=== PATIENT | female | born 1985 | race Caucasian/White ===

== ENCOUNTER → 2020-08-23 09:41 | Outpatient (CLI) | payer OTHER, SELFPAY ==
--- NOTE | 2020-08-23 | DI.RAD.S_ITS ---
PROCEDURE: XR AC JOINT BI INDICATIONS: RIGHT AC JOINT PAIN TECHNIQUE: 2 views each of both acromioclavicular joints were acquired. COMPARISON: None. FINDINGS: Bones: No fractures or dislocations. There is mild narrowing of the acromioclavicular joints bilaterally, unchanged between weighted and non weighted views. No suspicious bony lesions. Superior ribs appear normal. Soft tissues: No suspicious soft tissue calcifications. IMPRESSION: Mild narrowing of the acromioclavicular joint as above. Dictated by: Alyse Medellin M.D. on 08/23/2020 at 11:30 Approved by: Alyse Medellin M.D. on 08/23/2020 at 11:32
--- NOTE | 2020-08-23 | DI.RAD.S_ITS ---
PROCEDURE: XR SHOULDER RT MIN 2V INDICATIONS: RIGHT AC JOINT PAIN TECHNIQUE: 3 views of the shoulder were acquired. COMPARISON: [facility], CR, XR AC JOINT BI, 08/23/2020, 10:00. FINDINGS: Bones: No fractures or dislocations. No suspicious bony lesions. Visualized ribs appear intact. Mild narrowing of the right acromioclavicular joint space. Soft tissues: No suspicious soft tissue calcifications. IMPRESSION: Mild right acromioclavicular joint space narrowing. Otherwise, unremarkable exam. Dictated by: Alyse Medellin M.D. on 08/23/2020 at 11:33 Approved by: Alyse Medellin M.D. on 08/23/2020 at 11:33
== END ==
PROVIDERS: Family Provider Specialist; PCP Internal Medicine; Referring Provider Internal Medicine; Visit Provider Internal Medicine
DX: M25.511 Pain in right shoulder (principal)
CPT/HCPCS: 73030; 73050

== ENCOUNTER → 2020-12-06 08:14 | Outpatient (CLI) | payer OTHER, SELFPAY ==
--- NOTE | 2020-12-06 08:16 | DI.US.S_ITS ---
PROCEDURE: US PELVIC COMPLETE INDICATIONS: DUB TECHNIQUE: Real-time scanning was performed of the pelvic organs, with image documentation. Additional endovaginal scanning was necessary due to incomplete visualization of the adnexal and endometrial structures by transabdominal scanning. COMPARISON: None. FINDINGS: Uterus: Uterus is anteverted normal in size at 8.7 x 5.5 x 4.2 cm. No fibroids seen. The endometrium measures 11 mm in combined thickness. Ovaries: Within normal limits. Small ovarian follicles. No mass or large cyst. Right ovary measures 2.7 x 2.6 x 2 cm, estimated volume of 7 cc. Left ovary measures 3 x 2.6 x 2 cm, estimated volume of 9 cc. Other: No pathologic free abdominal or pelvic fluid. IMPRESSION: 1. Endometrium measures 11 mm and is within normal limits. 2. No fibroids seen. 3. Normal sonographic appearance of the ovaries. Dictated by: Valentino August M.D. on 12/07/2020 at 17:11 Approved by: Valentino August M.D. on 12/07/2020 at 17:14
== END ==
PROVIDERS: Family Provider Specialist; PCP Internal Medicine; Referring Provider Student in an Organized Health Care Education/Training Program; Visit Provider Student in an Organized Health Care Education/Training Program
DX: N92.0 Excessive and frequent menstruation with regular cycle (principal)
CPT/HCPCS: 76830; 76856

== ENCOUNTER → 2023-10-30 15:40 | Outpatient (CLI) | payer OTHER, SELFPAY ==
--- NOTE | 2023-10-30 | DI.US.S_ITS ---
PROCEDURE: US THYROID INDICATIONS: NONTOXIC GOITER TECHNIQUE: Real-time scanning was performed of the thyroid gland, with image documentation. COMPARISON: None. FINDINGS: Right: Thyroid lobe measures 5.2 x 1.2 x 1.0 there cm, and is homogeneous in echotexture. Left: Thyroid lobe measures 4.0 x 1.3 x 1.1 cm, and is homogenous in echotexture. Isthmus: 0.24 cm thick. Nodule number: 1 Location: Right isthmus Size: 0.6 x 0.8 x 0.3 cm. Composition: Solid Echogenicity: Hypoechoic Shape: wider than tall. Margins: Smooth Echogenic foci: None Total points: 4 ACR TI-RADS category: 4 IMPRESSION: 1. A small subcentimeter nodule in the right side of the isthmus. Please see enclosed follow-up guideline. ACR TI-RADS definitions and recommendations: TI-RADS 1 (benign): 0 points. FNA not needed. TI-RADS 2 (not suspicious): 2 points. FNA not needed. TI-RADS 3 (mildly suspicious): 3 points. * FNA if 2.5 cm or larger, follow up if 1.5 cm or larger (at 1, 3, and 5 years). TI-RADS 4 (moderately suspicious): 4-6 points. * FNA if 1.5 cm or larger, follow up if 1 cm or larger (at 1, 2, 3, and 5 years). TI-RADS 5 (highly suspicious): 7 points or more. * FNA if 1 cm or larger, follow up if 0.5 cm or larger (every year for 5 years). Dictated by: Pamela Lu M.D. on 10/31/2023 at 14:01 Approved by: Pamela Lu M.D. on 10/31/2023 at 14:35
== END ==
LOC: US 15:40
PROVIDERS: Family Provider Specialist; PCP Internal Medicine; Referring Provider Internal Medicine; Visit Provider Internal Medicine
DX: E03.9 Hypothyroidism, unspecified (principal); E04.1 Nontoxic single thyroid nodule
CPT/HCPCS: 76536

== ENCOUNTER 2024-11-07 03:13 | Emergency (ER) | payer OTHER, SELFPAY ==
--- NOTE | 2024-11-07 03:22 | DI.RAD.S_ITS ---
PROCEDURE: XR CHEST 1V INDICATIONS: epigastric pain TECHNIQUE: One view of the chest was acquired. COMPARISON: None. FINDINGS: Surgical changes and devices: None. Lungs and pleura: Lungs are clear. No pleural effusions or pneumothorax. Mediastinum: Mediastinal contours appear normal. Heart size is normal. Bones and chest wall: No suspicious bony lesions. Overlying soft tissues appear unremarkable. IMPRESSION: No acute cardiopulmonary pathology. No discrepancies from preliminary reading. Dictated by: Maciej Choi M.D. on 11/07/2024 at 8:06 Approved by: Maciej Choi M.D. on 11/07/2024 at 8:06
--- NOTE | 2024-11-07 03:22 | EKG_ITS ---
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
--- NOTE | 2024-11-07 03:24 | ED_ITS ---
HPI - Abdominal Pain General Chief Complaint: Nausea/Vomiting/Diarrhea Stated Complaint: Vomiting and diarrhea x 3 days Time Seen by Provider: 11/07/24 03:22 History of Present Illness HPI narrative: 39-year-old female past medical history of hypothyroidism comes into the ED from home for evaluation of abdominal pain, nausea vomiting diarrhea ongoing persistent for the past 3 days. States that she is tried [id number] medications to help with the symptoms but this does not help. Patient states that symptoms have gotten worse therefore decided come into the ED for further evaluation treatment. She denies any other symptoms such as headache visual disturbances chest pain shortness of breath fever chills or any other GI/ symptoms time. No recent travel no known sick contacts no recent antibiotic use. Related Data Previous Rx's Medication Instructions Recorded betamethasone dipropionate 0.05 % 1 margaret topical BID ##60 10/07/17 topical cream levothyroxine 175 mcg tablet 175 mcg PO QAM hypothyroid #30 tabs 10/13/18 ondansetron 4 mg disintegrating 4 mg PO Q8H PRN nausea and 11/07/24 tablet vomiting 5 days #15 tabs Allergies Allergy/AdvReac Type Severity Reaction Status Date / Time Penicillins [PENICILLINS] Allergy Unknown Unverified 01/07/18 12:37 Review of Systems Review of Systems Narrative: General: Denies fever, chills, weight loss HEENT: Denies headache, eye drainage, eye irritation, head trauma, sore throat, voice change Cardiovascular: Denies any chest pain, palpitations, shortness of breath, tachycardia Respiratory: Denies any shortness of breath, cough, wheeze, stridor GI/: Positive abdominal pain, nausea, vomiting, diarrhea, denies bright red blood per rectum, melanotic stools, urinary frequency, urinary retention, dysuria, hematuria MSK: Denies any joint pain, muscle pains, swelling Skin: Denies any rashes, lesions, discoloration Neuro: Denies any headache, lightheadedness, dizziness, fainting, weakness Psych: Denies SI/HI Patient History Social History Smoking Status: Never smoker Exam Narrative Exam Narrative: General: Cooperative, comfortable, well-developed, not in acute distress HEENT: Normocephalic, atraumatic, PERRLA, normal sclera, eyelids normal, Neck: Active full range of motion, atraumatic Chest: Normal to inspection, negative crepitus, no overlying erythema ecchymosis Respiratory: Normal respiratory effort, not in acute respiratory distress, clear to auscultation bilaterally negative cough, wheeze, tachypnea, rhonchi, rales Cardiology: Regular rate rhythm negative gallop, murmur, rubs GI/: Normal to inspection, soft, nonrigid, mild tenderness to palpation diffusely, worse in the epigastric region, exam deferred MSK: Full range of active range of motion of all 4 extremities, atraumatic Skin: No rashes lesions noted Neuro: Alert awake oriented x3, moves all 4 extremities spontaneously, cranial nerves intact, able to answer all questions appropriately follows commands appropriately Psych: Cooperative, negative suicidal or homicidal ideations Initial Vital Signs Initial Vital Signs: Vital Signs Temperature 97.2 F L 11/07/24 03:30 Pulse Rate 98 H 11/07/24 03:30 Respiratory Rate 22 11/07/24 03:30 Blood Pressure 135/90 11/07/24 03:30 Pulse Oximetry 98 11/07/24 03:30 Oxygen Delivery Method Room Air 11/07/24 03:30 Course Orders Ordered: ED Orders 11/07/24 03:22 CXR [XR chest 1V] Stat EKG-12 Lead Stat 11/07/24 03:27 Ictotest Urine Stat Urine Microscopic Stat 11/07/24 03:28 CBC Auto Diff [Complete Blood Count AUTO DIFF] Stat CMP [Comprehensive Metabolic Panel] Stat Lipase Stat MAG [Magnesium] Stat Troponin & CK Cardiac Panel Stat 11/07/24 03:48 CT abdomen pelvis w con Stat 11/07/24 04:43 Covid-19 + FLU A/B + RSV - PCR Stat Discontinued Medications Famotidine (Famotidine 20 Mg/2 Ml Vial) 20 mg IV NOW ONE Stop: 11/07/24 03:24 Last Admin: 11/07/24 03:47 Dose: 20 mg Documented By: KATHLEEN Sodium Chloride (Normal Saline 0.9%) 1,000 mls @ 1,000 mls/hr IV BOLUS ONE Stop: 11/07/24 04:21 Last Infusion: 11/07/24 05:06 Dose: Infused Documented By: Admin: 11/07/24 03:47 Dose: 1,000 mls/hr Documented By: KATHLEEN Morphine Sulfate (Morphine 4 Mg/Ml Inj) 4 mg IV NOW ONE Stop: 11/07/24 03:26 Last Admin: 11/07/24 03:47 Dose: 4 mg Documented By: KATHLEEN Ondansetron HCl (Ondansetron 4 Mg/2 Ml Inj) 4 mg IV NOW ONE Stop: 11/07/24 03:23 Last Admin: 11/07/24 03:47 Dose: 4 mg Documented By: KATHLEEN Vital Signs Vital signs: Vital Signs - 8 hr 11/07/24 03:30 11/07/24 04:38 Temperature 97.2 F L Pulse Rate 98 H 84 Respiratory Rate 22 16 Blood Pressure 135/90 109/58 L Pulse Oximetry 98 100 Oxygen Delivery Method Room Air Room Air MDM - Abdominal Pain Differential Diagnosis Differential diagnosis: Likely other (ACS, pneumonia, electrolyte abnormality, colitis, diverticulitis, urinary tract infection) Lab Data 11/07/24 03:28 11/07/24 03:28 Labs: Lab Results 11/07/24 11/07/24 11/07/24 Range/Units 03:27 03:28 04:43 WBC 9.5 (4.5-11.0) X10^3/uL RBC 4.88 (4.0-5.2) X10^6/uL Hgb 14.2 (12.0-16.0) g/dL Hct 41.5 (36-46) % MCV 85.2 (80-100) fL MCH 29.2 (26-34) PG MCHC 34.3 (30-36) % RDW 14.4 (11.6-14.8) % Plt Count 353 (150-400) X10^3/uL Neut % (Auto) 72.2 (50-75) % Lymph % (Auto) 15.1 L (25-40) % [place] % (Auto) 8.6 (3-14) % Eos % (Auto) 3.9 (2-4) % Baso % (Auto) 0.2 (0-2) % Neut # (Auto) 6800 (6072-5716) /uL Lymph # (Auto) 1400 (6707-1357) /uL [place] # (Auto) 800 (0-900) /uL Eos # (Auto) 400 (0-450) /uL Baso # (Auto) 0 (0-100) /uL Sodium 136 L (137-145) mmol/L Potassium 3.6 (3.4-5.1) mmol/L Chloride 103 (98-107) mmol/L Carbon Dioxide 23 (22-32) mmol/L BUN 13 (7-17) mg/dL Creatinine 0.97 (0.52-1.04) mg/dL Estimated GFR > 60 (>60) mL/min BUN/Creatinine Ratio 13.4 (6-22) Glucose 123 H (70-100) mg/dL Calcium 9.5 (8.4-10.2) mg/dL Magnesium 1.9 (1.6-2.3) mg/dL Total Bilirubin 0.6 (0.2-1.3) mg/dL AST 24 (14-36) IU/L ALT 24 (<35) IU/L Alkaline Phosphatase 70 (38-126) U/L Total Creatine Kinase 63 (30-135) U/L Troponin I < 0.012 (0.01-0.034) ng/mL Total Protein 7.8 (6.3-8.2) g/dL Albumin 4.8 (3.5-5.0) g/dL Globulin 3.0 (1.7-4.1) g/dL Albumin/Globulin Ratio 1.6 (1.0-2.8) Lipase 48 (23-300) U/L Ur Bilirubin Confirm Negative (Negative) Urine RBC 0-1/hpf (0-5/HPF) Urine WBC 0-1/hpf (0-5/HPF) Ur Squamous Epith Cells 5-10 /hpf H (0-5/HPF) Calcium Oxalate Crystal Few H Amorphous Sediment 4+ Urine Bacteria Few (2-10) H (None) Ur Culture Indicated? Cult not indicated Vol Urine Centrifuged 10ml (spun) SARS-CoV-2 (PCR) Negative (Negative) Influenza A (RT-PCR) Flu a negative (NEGATIVE) Influenza B (RT-PCR) Flu b negative (NEGATIVE) RSV (PCR) Negative (Negative) Point of care testing: Point of Care Testing Test Results Negative Urine Dip Bedside Urine Glucose Negative Bedside Urine Bilirubin ++ 2 Bedside Urine Ketone +/- 5 Urine Specific [place] 1.030 Bedside Urine Occult Blood - Negative Bedside Urine pH 5.5 Bedside Urine Protein + 30 Bedside Urine Urobilinogen - Negative Bedside Urine Nitrite - Negative Bedside Urine Leukocytes +/- 15 Esterase Imaging Data Chest x-ray: Radiologist's Impression: Preliminary read showing no acute cardiopulmonary abnormality CT scan - abdomen/pelvis: Radiologist's Impression: Preliminary read showing enlarged spleen, fluid contents nondistended within the small and large bowel incidental or diarrheal in nature otherwise no other acute findings MDM Narrative Medical decision making narrative: 39-year-old female with past medical history of hypothyroidism presents for nausea vomiting abdominal pain ongoing persistent for the past 3 days. Patient had lab work imaging EKG performed here in the emergency department. Patient's troponin negative, CT scan only showing an enlarged spleen, patient lab work without leukocytosis, Chem panel unremarkable. Patient had significant improvement of her symptoms after administration of medication. Chest x-ray without any signs of pneumonia. Urinalysis not consistent with an acute urinary tract infection. Patient's symptoms more likely secondary to gastroenteritis patient is well-appearing nontoxic she was given strict return precautions she verbalized understanding of this and agrees to being discharged home with primary care follow up. Discharge Plan Departure Patient Disposition: Home Clinical Impression: Gastroenteritis Instructions: DI for Viral Gastroenteritis -- Adult Activity Restrictions/Additional Instructions: Please follow up with primary care Please read the discharge instructions sheet carefully and bring all papers to all doctor follow-up visits, as it may contain information that your doctor may want to see. Disease processes change and evolve, if your symptoms worsen or if you develop any new symptoms that are concerning to you please return for evaluation. Your evaluation today does not show any evidence of any life- threatening/serious illnesses requiring admission to the hospital or surgery. Please follow-up with your doctor for re-evaluation in approximately 1 day. Seek immediate medical attention for any worrisome symptoms. *If you do not have a primary care provider please contact the [facility] Resource line at [phone]. They will ask some questions about your medical history and help get you set up with a doctor in the community. Prescriptions: New ondansetron 4 mg tablet,disintegrating 4 mg PO Q8H PRN (Reason: nausea and vomiting) 5 Days Qty: 15 0RF No Action betamethasone dipropionate 0.05 % cream 1 margaret Topical BID Qty: 60 0RF levothyroxine 175 mcg tablet 175 mcg PO QAM Qty: 30 1RF Referrals: Ying Anderson ARNP [Primary Care Provider] - Stand Alone Forms: Patient Portal/API/Survey
[2024-11-07 03:30] VITALS: BP 135/90; PULSE 98; RESP 22; TEMP 36.2; O2SAT 98; BMI 36.9
--- NOTE | 2024-11-07 03:35 | PC.NURSE ---
Pt to imaging via ED stretcher with imaging technician
[2024-11-07 03:36] LABS: Add Manual Diff / Slide Review NO; Basophils Absolute Auto 0 /uL (0-100); Basophils Percent Auto 0.2 % (0-2); Eosinophils Absolute Auto 400 /uL (0-450); Eosinophils Percent Auto 3.9 % (2-4); Hematocrit 41.5 % (36-46); Hemoglobin 14.2 g/dL (12.0-16.0); Lymphocytes Absolute Auto 1400 /uL (1100-4500); Lymphocytes Percent Auto 15.1 % (25-40); Mean Corpuscular HGB Conc 34.3 % (30-36); Mean Corpuscular Hemoglobin 29.2 PG (26-34); Mean Corpuscular Volume 85.2 fL (80-100); Monocytes Absolute Auto 800 /uL (0-900); Monocytes Percent Auto 8.6 % (3-14); Neutrophils Absolute Auto 6800 /uL (1500-7000); Neutrophils Percent Auto 72.2 % (50-75); Platelet Count 353 X10^3/uL (150-400); Red Blood Cell Count 4.88 X10^6/uL (4.0-5.2); Red Cell Distribution Width 14.4 % (11.6-14.8); White Blood Cell Count 9.5 X10^3/uL (4.5-11.0)
[2024-11-07] MEDS: SODIUM CHLORIDE 0.9% 1,000 ML 1000 ML IV (03:47)
[2024-11-07] MEDS: MORPHINE 4 MG/ML INJ IV (03:47)
[2024-11-07] MEDS: ONDANSETRON 4 MG/2 ML INJ IV (03:47)
[2024-11-07] MEDS: FAMOTIDINE 20 MG/2 ML VIAL IV (03:47)
[2024-11-07 03:48] LABS: Alanine Aminotransferase 24 IU/L (<35); Albumin 4.8 g/dL (3.5-5.0); Albumin Globulin Ratio 1.6 (1.0-2.8); Alkaline Phosphatase 70 U/L (38-126); Aspartate Aminotransferase 24 IU/L (14-36); BUN Creatinine Ratio 13.4 (6-22); Bilirubin Total 0.6 mg/dL (0.2-1.3); Blood Urea Nitrogen 13 mg/dL (7-17); Calcium 9.5 mg/dL (8.4-10.2); Carbon Dioxide 23 mmol/L (22-32); Chloride 103 mmol/L (98-107); Creatine Kinase 63 U/L (30-135); Estimated Glomerular Filt Rate > 60 mL/min (>60); Glucose 123 mg/dL (70-100); HEMOLYSIS < 15 (0-50); Lipase 48 U/L (23-300); Magnesium 1.9 mg/dL (1.6-2.3); Potassium 3.6 mmol/L (3.4-5.1); Sodium 136 mmol/L (137-145); Total Protein 7.8 g/dL (6.3-8.2)
--- NOTE | 2024-11-07 03:48 | DI.CT.S_ITS ---
PROCEDURE: CT ABDOMEN PELVIS W CON INDICATIONS: diffuse abd pain, worse to epigastric TECHNIQUE: After the administration of intravenous contrast, axial sections acquired from the lung bases to the pubic symphysis. Coronal and sagittal reformats were performed. For radiation dose reduction, the following was used: automated exposure control, adjustment of mA and/or kV according to patient size. COMPARISON: None. FINDINGS: Image quality: Diagnostic. Lower Chest: No significant findings. ABDOMEN: Liver: No solid mass. Gallbladder: No radiopaque gallstones or wall thickening. Biliary ducts: No biliary dilation. Pancreas: No ductal dilation. Spleen: Mild splenomegaly, no discrete splenic lesion. Adrenal Glands: No adrenal nodules. Kidneys and Ureters: No hydronephrosis. No solid mass. No complex renal cystic lesion which requires follow up. Stomach and Bowel: There is no evidence of bowel obstruction. Mild fluid filling of nondistended small and large bowel loops which may be due to diarrhea. No significant bowel wall thickening. No mesenteric fat stranding. No abscess collection. Appendix is not definitely seen. No focal inflammatory changes are noted in right lower quadrant abdomen. Peritoneum: No abnormal intraperitoneal fluid. No free air. Ventral Wall: No significant ventral hernia. Abdominal Nodes: No retroperitoneal or mesenteric adenopathy by size criteria. Vessels: Aorta and inferior vena cava are normal in size. PELVIS: Pelvic Organs: Unremarkable. Bladder: No bladder wall thickening, accounting for underdistention. Pelvic Nodes: No enlarged lymph nodes. Miscellaneous: No inguinal hernias are seen. Bones: No aggressive osseous abnormality. Spondylitic changes at L5-S1 level are seen. IMPRESSION: 1. Partially fluid filling of nondistended small bowel and colon loops which may be due to diarrhea and low-grade enterocolitis, suggest clinical correlation. No abnormal bowel wall thickening. No free fluid or free air. 2. Mild splenomegaly, no discrete splenic lesion. No significant discrepancies from preliminary reading. Dictated by: Maciej Choi M.D. on 11/07/2024 at 8:06 Approved by: Maciej Choi M.D. on 11/07/2024 at 8:08
[2024-11-07 04:38] VITALS: BP 109/58; PULSE 84; RESP 16; O2SAT 100
[2024-11-07 04:44] LABS: Amorphous Sediment Urine 4+; Calcium Oxalate Crystals Urine Few; Urine Volume 10mL (spun); WBC Urine 0-1/HPF (0-5/HPF)
[2024-11-07 04:45] LABS: Bacteria Urine Few (2-10); Culture Indicated Urine Cult Not Indicated; RBC Urine 0-1/HPF (0-5/HPF); Squamous Epithelial Cell Urine 5-10 /HPF (0-5/HPF)
[2024-11-07 04:46] LABS: Ictotest Urine Negative (Negative)
[2024-11-07 05:00] LABS: Troponin I < 0.012 ng/mL (0.01-0.034)
--- NOTE | 2024-11-07 05:29 | PC.NURSE ---
Pt ambulatory to restroom without difficulty or assistance
[2024-11-07 05:34] LABS: Influenza A - CEPHEID Flu A NEGATIVE (NEGATIVE); Influenza B - CEPHEID Flu B NEGATIVE (NEGATIVE); Respiratory Syncytial Virus Negative (Negative)
[2024-11-07 05:36] LABS: COVID-19 CEPHEID 4-PLEX PCR Negative (Negative)
== END 2024-11-07 05:56 | disposition home or self-care (01) ==
PROVIDERS: Emergency Provider Student in an Organized Health Care Education/Training Program; Family Provider Specialist; PCP Internal Medicine
DX: K52.9 Noninfective gastroenteritis and colitis, unspecified (principal); Z88.0 Allergy status to penicillin; Z86.39 Personal history of other endocrine, nutritional and metabolic disease
CPT/HCPCS: 0241U; 36415; 71045; 74177; 80053; 81003; 81015; 81025; 82550; 83690; 83735; 84484; 85025; 93005; 96361; 96374; 96375; 99284; 99285; J2270; J2405; Q9967

== ENCOUNTER 2024-11-09 10:03 | Emergency (ER) | payer OTHER, SELFPAY ==
[2024-11-09] VITALS (9 sets, daily range): BP systolic 100–145; BP diastolic 56–87; PULSE 78–121; RESP 16; TEMP 36.5–36.9; O2SAT 98–100
[2024-11-09] MEDS: SODIUM CHLORIDE 0.9% 1,000 ML 1000 ML IV ×2 (11:20→12:00)
[2024-11-09 11:29] LABS: Add Manual Diff / Slide Review NO; Basophils Absolute Auto 0 /uL (0-100); Basophils Percent Auto 0.2 % (0-2); Eosinophils Absolute Auto 200 /uL (0-450); Eosinophils Percent Auto 3.2 % (2-4); Hematocrit 43.8 % (36-46); Hemoglobin 14.7 g/dL (12.0-16.0); Lymphocytes Absolute Auto 1100 /uL (1100-4500); Lymphocytes Percent Auto 14.2 % (25-40); Mean Corpuscular HGB Conc 33.5 % (30-36); Mean Corpuscular Hemoglobin 29.1 PG (26-34); Mean Corpuscular Volume 86.8 fL (80-100); Monocytes Absolute Auto 600 /uL (0-900); Monocytes Percent Auto 7.2 % (3-14); Neutrophils Absolute Auto 5800 /uL (1500-7000); Neutrophils Percent Auto 75.2 % (50-75); Platelet Count 302 X10^3/uL (150-400); Red Blood Cell Count 5.05 X10^6/uL (4.0-5.2); Red Cell Distribution Width 14.1 % (11.6-14.8); White Blood Cell Count 7.8 X10^3/uL (4.5-11.0)
[2024-11-09 11:48] LABS: Alanine Aminotransferase 17 IU/L (<35); Albumin 4.6 g/dL (3.5-5.0); Albumin Globulin Ratio 1.8 (1.0-2.8); Alkaline Phosphatase 49 U/L (38-126); Aspartate Aminotransferase 28 IU/L (14-36); BUN Creatinine Ratio 13.8 (6-22); Bilirubin Total 0.7 mg/dL (0.2-1.3); Blood Urea Nitrogen 13 mg/dL (7-17); Calcium 9.1 mg/dL (8.4-10.2); Carbon Dioxide 22 mmol/L (22-32); Chloride 106 mmol/L (98-107); Estimated Glomerular Filt Rate > 60 mL/min (>60); Globulin 2.5 g/dL (1.7-4.1); Glucose 94 mg/dL (70-100); Lipase 39 U/L (23-300); Sodium 137 mmol/L (137-145); Total Protein 7.1 g/dL (6.3-8.2)
[2024-11-09 11:54] LABS: HEMOLYSIS 95 (0-50); Potassium 4.5 mmol/L (3.4-5.1)
[2024-11-09 13:06] LABS: Urine Volume 10mL (spun)
[2024-11-09 13:09] LABS: Bacteria Urine Moderate (10-30); Culture Indicated Urine Cult Not Indicated; Mucus Urine 2+ (Negative); RBC Urine None Seen (0-5/HPF); Squamous Epithelial Cell Urine 1-5 /HPF (0-5/HPF); WBC Urine 1-5/HPF (0-5/HPF)
--- NOTE | 2024-11-09 13:51 | ED.NAVMDI ---
HPI - Nausea/Vomiting/Diarrhea General Chief complaint: Nausea/Vomiting/Diarrhea Stated complaint: Not feeling feeling better from last ER visit Time Seen by Provider: 11/09/24 13:45 Source: patient and family Mode of arrival: Ambulatory History of Present Illness HPI Narrative: 39-year-old female with recent ED visit here for nausea vomiting diarrhea, discharged on oral ondansetron which she had been taking, however she is having increased stooling and still having nausea and vomiting. No black or red stools. No black or red emesis. She feels dizzy and weak. She has not taking any antibiotics. Denies painful or frequent urination. Denies cough chest pain or shortness of breath. No injury or trauma new activities. No change in medications. She also took single dose of loperamide for the 1st time earlier today. No stooling since that dose. Feels that she is dehydrated. Related Data Previous Rx's Medication Instructions Recorded betamethasone dipropionate 0.05 % 1 margaret topical BID ##60 10/07/17 topical cream levothyroxine 175 mcg tablet 175 mcg PO QAM hypothyroid #30 tabs 10/13/18 ondansetron 4 mg disintegrating 4 mg PO Q8H PRN nausea and 11/07/24 tablet vomiting 5 days #15 tabs Allergies Allergy/AdvReac Type Severity Reaction Status Date / Time Penicillins [PENICILLINS] Allergy Unknown Verified 11/09/24 12:00 Patient History Social History Smoking Status: Never smoker Smoking Status: Never smoker Exam Narrative Exam Narrative: GENERAL: Well-developed patient, in mild distress. HEAD: Atraumatic. Normocephalic. EYES: Pupils equal round and reactive. Extraocular motions intact. No scleral icterus. No injection or drainage. ENT: Nose without bleeding, purulent drainage. Throat without erythema, tonsillar hypertrophy or exudate. Airway patent. NECK: Trachea midline. Non tender CARDIOVASCULAR: Regular rate and rhythm without murmurs, gallops, or rubs. RESPIRATORY: Clear to auscultation. Breath sounds equal bilaterally. No wheezes, rales, or rhonchi. GASTROINTESTINAL: Abdomen soft, non-tender, nondistended. EXTREMITIES: No edema or joint tenderness. BACK: Nontender without deformity or crepitance. No flank tenderness. NEURO: AOx3. Motor functions grossly nonfocal SKIN: No rash or erythema of visible areas Initial Vital Signs Initial Vital Signs: Vital Signs Temperature 97.7 F 11/09/24 10:56 Pulse Rate 121 H 11/09/24 10:56 Respiratory Rate 16 11/09/24 10:56 Blood Pressure 100/78 11/09/24 10:56 Pulse Oximetry 99 11/09/24 10:56 Oxygen Delivery Method Room Air 11/09/24 10:56 Course Orders Ordered: Discontinued Medications Sodium Chloride (Normal Saline 0.9%) 1,000 mls @ 1,000 mls/hr IV BOLUS ONE Stop: 11/09/24 11:57 Last Infusion: 11/09/24 12:00 Dose: Infused Documented By: Admin: 11/09/24 11:20 Dose: 1,000 mls/hr Documented By: RADHA Sodium Chloride (Normal Saline 0.9%) 1,000 mls @ 1,000 mls/hr IV BOLUS ONE Stop: 11/09/24 12:57 Last Infusion: 11/09/24 13:06 Dose: Infused Documented By: Admin: 11/09/24 12:00 Dose: 1,000 mls/hr Documented By: Ondansetron HCl (Ondansetron 4 Mg/2 Ml Inj) 4 mg IV NOW PRN PRN Reason: Nausea And Vomiting Ondansetron HCl (Ondansetron 4 Mg Odt) 4 mg PO NOW PRN PRN Reason: Nausea And Vomiting Vital Signs Vital signs: Vital Signs - 8 hr 11/09/24 14:44 Temperature 98.4 F Pulse Rate 85 Respiratory Rate 16 Blood Pressure 112/67 Pulse Oximetry 98 Oxygen Delivery Method Room Air MDM - Nausea/Vomiting/Diarrhea Lab Data 11/09/24 11:13 11/09/24 11:13 Labs: Lab Results 11/09/24 11/09/24 Range/Units 11:13 12:30 WBC 7.8 (4.5-11.0) X10^3/uL RBC 5.05 (4.0-5.2) X10^6/uL Hgb 14.7 (12.0-16.0) g/dL Hct 43.8 (36-46) % MCV 86.8 (80-100) fL MCH 29.1 (26-34) PG MCHC 33.5 (30-36) % RDW 14.1 (11.6-14.8) % Plt Count 302 (150-400) X10^3/uL Neut % (Auto) 75.2 H (50-75) % Lymph % (Auto) 14.2 L (25-40) % [place] % (Auto) 7.2 (3-14) % Eos % (Auto) 3.2 (2-4) % Baso % (Auto) 0.2 (0-2) % Neut # (Auto) 5800 (1693-9020) /uL Lymph # (Auto) 1100 (8548-1591) /uL [place] # (Auto) 600 (0-900) /uL Eos # (Auto) 200 (0-450) /uL Baso # (Auto) 0 (0-100) /uL Sodium 137 (137-145) mmol/L Potassium 4.5 (3.4-5.1) mmol/L Chloride 106 (98-107) mmol/L Carbon Dioxide 22 (22-32) mmol/L BUN 13 (7-17) mg/dL Creatinine 0.94 (0.52-1.04) mg/dL Estimated GFR > 60 (>60) mL/min BUN/Creatinine Ratio 13.8 (6-22) Glucose 94 (70-100) mg/dL Calcium 9.1 (8.4-10.2) mg/dL Total Bilirubin 0.7 (0.2-1.3) mg/dL AST 28 (14-36) IU/L ALT 17 (<35) IU/L Alkaline Phosphatase 49 (38-126) U/L Total Protein 7.1 (6.3-8.2) g/dL Albumin 4.6 (3.5-5.0) g/dL Globulin 2.5 (1.7-4.1) g/dL Albumin/Globulin Ratio 1.8 (1.0-2.8) Lipase 39 (23-300) U/L Urine RBC None seen (0-5/HPF) Urine WBC 1-5/hpf (0-5/HPF) Ur Squamous Epith Cells 1-5 /hpf (0-5/HPF) Urine Bacteria Moderate (10-30) H (None) Urine Mucus 2+ H (Negative) Ur Culture Indicated? Cult not indicated Vol Urine Centrifuged 10ml (spun) Point of Care Testing Test Results Negative Urine Dip Bedside Urine Glucose Negative Bedside Urine Bilirubin + 1 Bedside Urine Ketone ++ 40 Urine Specific [place] 1.030 Bedside Urine Occult Blood - Negative Bedside Urine pH 6.0 Bedside Urine Protein +/- 15 Bedside Urine Urobilinogen - Negative Bedside Urine Nitrite - Negative Bedside Urine Leukocytes +/- 15 Esterase MDM Narrative Medical decision making narrative: Recurring nausea and vomiting, abdomen soft, afebrile, SIRS screen negative, IV antiemetics, IVF bolus, symptoms better, able to ambulate to bathroom, took oral fluids. Took dose loperamide earlier today, no stool collected for lab testing. Improved, has home ODT-zofran supply to use if needed, DC home with friend. Return precautions discussed Discharge Plan Departure Patient Disposition: Home Clinical Impression: Nausea vomiting and diarrhea Activity Restrictions/Additional Instructions: Ms. Long, Recent ED visit for nausea vomiting diarrhea, unfortunately had recurrence of symptoms that brought you back in, with concern for dehydration, IV fluids given, IV antinausea medications given, symptoms improved, able to ambulate to the bathroom. Laboratory studies unremarkable. We did order stool studies but no specimen was obtained while in the emergency department. You by report had taken a dose of loperamide to help slow down stooling before coming today, hopefully this is kicking in. You have some residual ondansetron doses to use for nausea control if needed. Take as needed for control of nausea. Continue drinking Gatorade. Advanced abdominopelvic imaging does not seem indicated at this time. Symptomatic treatment for now. Consider recheck with your regular doctor if symptoms are persisting next couple of days. Return to this/nearest emergency department for any change worsening symptoms or any concerns prior. Thank you for allowing our teams daycare today. Prescriptions: No Action betamethasone dipropionate 0.05 % cream 1 margaret Topical BID Qty: 60 0RF levothyroxine 175 mcg tablet 175 mcg PO QAM Qty: 30 1RF ondansetron 4 mg tablet,disintegrating 4 mg PO Q8H PRN (Reason: nausea and vomiting) 5 Days Qty: 15 0RF Referrals: Cathie Sandra ARNP [Primary Care Provider] - Stand Alone Forms: Patient Portal/API/Survey
== END 2024-11-09 14:44 | disposition home or self-care (01) ==
PROVIDERS: Emergency Provider Emergency Medicine; Family Provider Specialist; PCP Registered Nurse
DX: R11.2 Nausea with vomiting, unspecified (principal); R19.7 Diarrhea, unspecified; R42 Dizziness and giddiness; R53.1 Weakness; Z88.0 Allergy status to penicillin
CPT/HCPCS: 36415; 80053; 81003; 81015; 81025; 83690; 85025; 96360; 96361; 99284